=== PATIENT | male | born 1945 | race Caucasian/White ===

== ENCOUNTER → 2018-07-08 12:36 | Outpatient (CLI) | payer MEDICARE, BC, SELFPAY ==
[2018-07-10 21:08] LABS: Pseudomonas aeruginosa Detected (Not Detect)
[2018-07-10 21:09] LABS: Acinetobacter baumannii Not Detected (Not Detect); Candida albicans Not Detected (Not Detect); Candida glabrata Not Detected (Not Detect); Candida krusei Not Detected (Not Detect); Candida parapsilosis Not Detected (Not Detect); Candida tropicalis Not Detected (Not Detect); E. coli Not Detected (Not Detect); Enterobacter cloacae complex Not Detected (Not Detect); Enterobacteriaceae species Not Detected (Not Detect); Enterococcus species Not Detected (Not Detect); Haemophilus influenzae Not Detected (Not Detect); KPC (carbapenem-resist gene) Not Detected (Not Detect); Listeria monocytogenes Not Detected (Not Detect); Methicillin-resistant gene Not Detected (Not Detect); Neisseria meningitidis Not Detected (Not Detect); Proteus species Not Detected (Not Detect); Serratia marcescens Not Detected (Not Detect); Staphylococcus species Not Detected (Not Detect); Streptococcus agalactiae (Gr B Not Detected (Not Detect); Streptococcus pneumonia Not Detected (Not Detect); Streptococcus pyogenes (Gr A) Not Detected (Not Detect); Streptococcus species Not Detected (Not Detect); Vancomycin-rest genes A/B Not Detected (Not Detect)
== END ==
PROVIDERS: PCP Family Medicine; Visit Provider Internal Medicine
DX: A41.9 Sepsis, unspecified organism (principal)
CPT/HCPCS: 36415; 87040; 87077; 87150; 87186; 87205

== ENCOUNTER → 2018-08-15 08:02 | Outpatient (CLI) | payer MEDICARE, BC, SELFPAY ==
--- NOTE | 2018-08-15 | DI.CT.S_ITS ---
PROCEDURE: CT ABDOMEN PELVIS WO/W CON INDICATIONS: RENAL ABSCESS TECHNIQUE: Optional 5 mm thick noncontrast images acquired from the diaphragm to the symphysis pubis. After the administration of intravenous contrast, 5 mm thick images acquired from the diaphragm to the symphysis pubis after a 10-minute delay. 2 mm thick coronal and sagittal reformats were then performed of the kidneys and ureters. For radiation dose reduction, the following was used: automated exposure control, adjustment of mA and/or kV according to patient size. COMPARISON: Outside Facility, RG, CT GUIDANCE ABSCESS DRAINAGE, 07/17/2018, 11:23. Outside Facility, RG, CT UROGRAM W CONTRAST, 07/15/2018, 14:21. Outside Facility, RG, CT ABDOMEN/PELVIS WITHOUT CONTRAST, 07/29/2018, 16:45. FINDINGS: Image quality: Excellent. Lung bases: There is a small right and a moderate left low-density pleural effusion. There is compressive atelectasis at the left lung base. These are increased in size when compared with the prior CT dated 07/29/18. Partial herniation of the gastric fundus as described on the study dated 07/29/18 is no longer visualized. Urinary system: Both kidneys are normal in size, without hydronephrosis or nephrolithiasis on pre-contrast images. No perinephric fat stranding. There is normal left renal enhancement and size. A low density cystic lesion is present within the midpole of left kidney. The right kidney is mildly enlarged and demonstrates moderate perinephric fat stranding. There are striated nephrograms throughout the right kidney. When compared with the study dated 07/15/18, there is a marked decrease in the multiple loculated cortical renal abscess these. The largest abscess at the posterior lower pole of the right kidney measures 1.4 x 0.7 cm and previously measured 4.2 x 2.8 cm on the study dated 07/15/18. Renal calyces appear normal in morphology when filled with contrast. Opacified portions of both ureters demonstrate normal caliber. A suprapubic catheter is present. The bladder is decompressed and the wall is markedly thickened. The prostate is enlarged. Other solid organs: Liver is normal in size and enhancement. Gallbladder is unremarkable. Biliary system is non dilated. Pancreas enhances normally. Spleen is normal in size and enhancement. No adrenal nodules. Peritoneum and bowel: Bowel loops demonstrate normal wall thickness and caliber. The appendix is thinwalled. No free fluid or air. Nodes and vessels: No retroperitoneal or mesenteric adenopathy by size criteria. Aorta and inferior vena cava are normal in size. Abdominal wall: No ventral hernias. Pelvis: No pathologic free pelvic fluid. No inguinal hernias or adenopathy. Bones: No suspicious bony lesions. No vertebral body compression fractures. Sacral fixation screws and posttraumatic non-unified fractures of the pelvis are redemonstrated. IMPRESSION: 1. Reduction of the gastric herniation visualized on the comparison study dated 07/29/18. 2. Marked reduction in the multiple loculated right renal abscesses when compared with the prior CT dated 07/15/18. 3. Marked bladder wall thickening which may be associated with infection or neurogenic bladder. Neoplasm could also be considered in the differential. 4. Bilateral low density pleural effusions which are increased in size when compared with the prior CT dated 07/29/18. Dictated by: Leela Rivera M.D. on 08/15/2018 at 10:02 Approved by: Leela Rivera M.D. on 08/15/2018 at 10:39
== END ==
PROVIDERS: PCP Family Medicine
DX: N15.1 Renal and perinephric abscess (principal); J90 Pleural effusion, not elsewhere classified
CPT/HCPCS: 74178; Q9967